=== PATIENT | female | born 1945 | race Caucasian/White ===

== ENCOUNTER 2023-10-12 12:55 | Outpatient (CLI) | payer MEDICARE, SELFPAY ==
[2023-10-12 15:54] LABS: Hemoglobin 13.4 g/dL (12.0-15.0); Mean Corpuscular HGB Conc 31.9 g/dl (32-36); Mean Corpuscular Hemoglobin 28.9 pg (26-34); Mean Corpuscular Volume 90.5 fl (80-100); Mean Platelet Volume 11.7 fl (7.4-10.4); Platelet Count Result 207 k/mm3 (150-375); Red Blood Count 4.64 M/mm3 (4.2-5.4); Red Cell Distribution Width 13.3 % (11.5-14.5)
[2023-10-12 15:57] LABS: Appearance Urine Clear (Clear); Bacteria Urine 1+ /hpf; Bilirubin Urine Negative (Negative); Blood Urine Negative (Negative); Color Urine Yellow (Yellow); Glucose Urine UA 1+ mg/dL (Negative); Ketones Urine Negative (Negative); Leukocyte Esterase Ur Trace LEU/UL (Negative); Nitrate Urine Negative (Negative); Non Pathogenic Casts 0-2; Protein Urine Negative (Negative); RBC Urine 0-2 /hpf (0-2); Specific Grav Ur 1.021 (1.001-1.035); Squamous Epithelial Cell Urine None Seen /hpf (Few); Urobilinogen Urine 0.2 mg/dL (<2.0); pH Urine 5.5 (5.0-9.0)
[2023-10-12 16:15] LABS: Prothrombin Time 13.5 Seconds (11.1-14.7)
[2023-10-12 16:23] LABS: Anion Gap 66 mmol/L (4-12); Blood Urea Nitrogen 13 mg/dL (7-17); Calcium 3.1 mg/dL (8.4-10.2); Carbon Dioxide 6 mmol/L (22-30); Chloride 76 mmol/L (98-107); Estimated Glomerular Filt Rate > 60; Glucose 174 mg/dL (65-110); Potassium 2.6 mmol/L (3.4-5.0); Sodium 148 mmol/L (137-145)
[2023-10-12 17:20] LABS: Add Urine Microscopic? YES
== END 2023-10-12 12:56 | disposition home or self-care (01) ==
PROVIDERS: PCP Family Medicine; Visit Provider Neurological Surgery
DX: Z01.818 Encounter for other preprocedural examination (principal); M48.062 Spinal stenosis, lumbar region with neurogenic claudication
CPT/HCPCS: 36415; 80048; 81001; 85027; 85610; 85730; 86850; 86900; 86901; 87077; 87086; 87088; 87186

== ENCOUNTER 2023-10-18 13:34 | Inpatient (IN) | payer MEDICARE, SELFPAY ==
[2023-10-11 09:42] VITALS: BMI 29.2
--- NOTE | 2023-10-11 10:15 | PC.NURSE ---
PRE-OP INSTRUCTIONS, PLEASE READ CAREFULLY Report to the Outpatient Waiting Room, entrance under the green pavilion located off [facility], at time _0730_ on date _10/17/23_. Planned Procedure Time: _0930_. PACK A SMALL OVERNIGHT BAG AND LEAVE IN THE CAR Time changes happen often and if your time is changed the preop area will call you the afternoon before. - You and your visitor will be asked to self-screen and do not enter if you have any COVID symptoms. - A mask is optional within the hospital at this time. -VISITING HOURS 8AM-8PM Patients may have clear liquids (water, carbonated beverages, clear teas, apple juice) until 3 hours prior to surgery (0630 AM) with a maximum of 20 ounces. - No food from midnight until time of surgery Take the following medications with a SIP of water the morning of surgery: _ISOSORBIDE, METOPROLOL_ DO NOT STOP ANY OF YOUR OTHER PRESCRIPTION MEDICATIONS PRIOR TO SURGERY ?EXCEPT THE FOLLOWING Medications to discontinue - _PT STATES STOPPING ASPIRIN & MELOXICAM 10/08/23_ Medications to discontinue per ANESTHESIA - _PRENATAL VITAMIN AND SUPPLEMENTS 3 DAYS PRIOR TO SURGERY, Date to take last dose 10/13/23_ Please no make-up, nail indonesian, hairspray, perfume, deodorant, or body powder the day of surgery. No jewelry (including any body piercings) or valuables the day of surgery, leave them at home. Please take a shower or bath the night before, or the morning of, surgery with an antibacterial soap. Wear comfortable, loose fitting clothing. - Jewelry must be removed prior to entering the operating room. Rings and piercings that are not removed may be cut off. - The hospital will not accept responsibility for valuables. - Please leave all valuables, including medications, at home the day of surgery. If you are going home after surgery, a licensed rolloff driver must drive you home. - NO public transportation without another adult if you receive anesthesia. - We recommend that an adult stay with you for 24 hours following discharge. - We also recommend that you do not drive, make important decision, drink alcoholic beverages, or take any drugs that were not prescribed by your health care provider for at least 24 hours after your discharge time. Follow any additional instructions given to you from your surgeon. If you or anyone in your household have experienced Covid symptoms in the past week, please notify your surgeon or the nurse liaison at the phone number below for possible testing. Telephone instructions given to _PATIENT_and asked if any additional questions and then verbalized understanding. Patient advised to call surgeon office or pre surgery nurse liaison [phone] if any additional questions.
[2023-10-17] VITALS (17 sets, daily range): BP systolic 97–164; BP diastolic 64–94; PULSE 69–98; RESP 14–20; TEMP 35.9–36.9; O2SAT 96–100
[2023-10-17] MEDS: LACTATED RINGERS 1,000 ML 30 ML IV CONT ×2 (07:00→11:48)
[2023-10-17 07:14] LABS: Glucose Point of Care 134 mg/dl (65-105)
--- NOTE | 2023-10-17 07:30 | WPDANESEPPF ---
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 Patient Data Age: 78 Gender: F Height: 1.65 m Weight: 79.54 kg Allergies Allergy/AdvReac Type Severity Reaction Status Date / Time propoxyphene [From Darvon] AdvReac N/V Verified 10/11/23 09:34 Home Medications Medication Instructions Recorded Confirmed Type aspirin 81 mg tablet,delayed 81 mg PO DAILY 05/19/23 10/11/23 History release (Adult Aspirin Regimen) meloxicam 15 mg tablet 15 mg PO DAILY 05/19/23 10/11/23 History metoprolol tartrate 25 mg tablet 25 mg PO DAILY 05/19/23 10/11/23 History pantoprazole 40 mg tablet,delayed 40 mg PO QAM 05/19/23 10/11/23 History release pramipexole 1 mg tablet See Rx Instructions .Route .COMPLEX 05/19/23 10/11/23 History ascorbic acid (vitamin C) 500 mg 250 mg PO DAILY 10/11/23 10/11/23 History tablet (Vitamin C) calcium 600 mg capsule 600 mg PO DAILY 10/11/23 10/11/23 History cetirizine 10 mg tablet (Zyrtec) 10 mg PO DAILY 10/11/23 10/11/23 History cholecalciferol (vitamin D3) 125 125 mcg PO DAILY 10/11/23 10/11/23 History mcg (5,000 unit) capsule diphenhydramine HCl 50 mg capsule 50 mg PO HS 10/11/23 10/11/23 History (Sleep Aid (diphenhydramine)) docusate sodium 100 mg tablet 200 mg PO DAILY 10/11/23 10/11/23 History (Stool Softener) isosorbide mononitrate 30 mg 30 mg PO QAM 10/11/23 10/11/23 History tablet,extended release 24 hr losartan 100 mg tablet 100 mg PO DAILY 10/11/23 10/11/23 History prenat.vits,asha,qki-ydsv-tmgmr 1 tablet DAILY 10/11/23 10/11/23 History Laboratory Tests 10/17/23 06:55 POC Capillary Glucose 134 H mg/dl (65-105) Patient hx anesthesia problems: none Family hx anesthesia problems: none Results Review: All pre-operative results and documents have been reviewed as part of the pre-operative evaluation. [facility] Family History Family History Father Hypertension Mother Hypertension Social History Social History Smoking status: Never smoker Second hand tobacco smoke exposure: No Alcohol intake: never Substance use: never Substance use type: does not use Do You Feel Safe in your Home?: Yes Lack of Transportation: No Lack of Food: Never True Current Housing: I Have Housing Concerned About Future Housing: No Difficulty Paying Gas/Electric Bills: No Difficulty Paying for Meds: No Currently Unemployed: No Education: High School Diploma/GED Difficulty w/ Childcare or Family Care: No Living arrangements: alone Occupation/Education: retired Gender identity (if verbalized by the patient): Female Sexual Orientation (if Verbalized by the Patient): Straight or Heterosexual Spiritual care concerns: No Anes - Eval Final PreProcedure Day of Procedure 10/17/23 07:30 Patient weight: normal Heart: regular rate and rhythm Lungs: clear to auscultation Airway: Mallampati scale class II Neurological: alert and oriented Last oral intake: >/= 8 hours ASA classification: III Emergent: no Anesthetic plan: proceed Anesthesia type and monitoring: general ETT and standard monitoring Results Review: All pre-operative results and documents have been reviewed as part of the pre-operative evaluation. Informed Consent: The patient's anesthetic plan and its attendant risks and benefits were discussed with the patient/family/POA. Questions were solicited and answers provided to the satisfaction of the patient/family/POA.
--- NOTE | 2023-10-17 07:32 | PM.IMHP ---
H&P: HPI History of Present Illness Date/Time: 10/17/23 07:32 Chief Complaint: Back and leg pain Narrative: Jazmín is a 78-year-old female who in 2012 underwent an L3-5 posterolateral instrumented fusion done by Dr. Velarde at [facility].? While she did well after that surgery she has for the last few years had progressive problems with heavy feeling in her legs and pain in her back especially when she walks.? Sitting down seems to make it go away.? This discomfort and heaviness has become severe enough that she is not able to walk more than about 15-20 minutes before she must sit down.? She can walk farther and be more comfortable if she leans forward on something like a shopping cart.? She has been treated by Dr. Sahu for some time and has undergone injections and finally a dorsal column stimulator placement.? Unfortunately this has not helped her permanently.? She does not report specific muscle group weakness of either lower extremity but does have generalized weakness at the same time that she has the discomfort that is limiting for her.? She does not report new bowel or bladder difficulty.? She does not have specific radiculopathy in either lower extremity.? She has difficulty sleeping in her bed at night and sleeps in a recliner because she can be bent.? She is here to discuss definitive management of her problem. Review of Systems Review of Systems: Const Details: Const All systems reviewed & are unremarkable except as noted in HPI and below ?Denies chills, Denies fever(s), Denies weakness, Denies weight gain and Denies weight loss Eyes Denies change in vision and Denies diplopia ENT Denies neck pain and Denies disequilibrium Card Denies chest pain and Denies dyspnea Resp Denies cough and Denies dyspnea GI Denies abdominal pain, Denies change in bowel habits, Denies fecal incontinence and Denies vomiting Denies hematuria, Denies oliguria, Denies difficulty urinating, Denies dysuria, Denies urinary frequency, Denies urinary hesitancy, Denies urinary incontinence and Denies urinary urgency Musc Reports as per HPI, Reports back pain, Denies muscle weakness, Denies neck pain, Reports numbness and Denies stiffness Skin/ Breast Reports system reviewed and no additional complaints, except as documented Neuro Reports as per HPI, Denies burning sensations, Denies focal weakness, Reports numbness, Denies Other visual disturbances, Reports radicular pain, Reports paresthesias, Denies disequilibrium and Denies weakness Psych Reports no additional complaints, Denies depression and Denies hopelessness Endo Reports no additional complaints and Denies polyuria Matt/ Lymph Reports no additional complaints Aller/ Immun Reports no additional complaints PMFSH Family History Family History Father Hypertension Mother Hypertension Social History Social History Smoking status: Never smoker Second hand tobacco smoke exposure: No Alcohol intake: never Substance use: never Substance use type: does not use Do You Feel Safe in your Home?: Yes Lack of Transportation: No Lack of Food: Never True Current Housing: I Have Housing Concerned About Future Housing: No Difficulty Paying Gas/Electric Bills: No Difficulty Paying for Meds: No Currently Unemployed: No Education: High School Diploma/GED Difficulty w/ Childcare or Family Care: No Living arrangements: alone Occupation/Education: retired Gender identity (if verbalized by the patient): Female Sexual Orientation (if Verbalized by the Patient): Straight or Heterosexual Spiritual care concerns: No Meds Home Medications and Allergies Home Medications Medication Instructions Recorded Confirmed Type aspirin 81 mg tablet,delayed 81 mg PO DAILY 05/19/23 10/11/23 History release (Adult Aspirin Regimen) meloxicam 15 mg tablet 15 mg PO
--- NOTE | 2023-10-17 07:35 | WPDHPUPDATE1 ---
History and Physical Update Update Date/Time: 10/17/23 07:35 History and Physical has been reviewed, including an updated exam of the patient. There are NO changes in the patient's condition. Risks, benefits, and alternatives have been discussed and questions answered. Patient agrees to proceed with procedure.
[2023-10-17] MEDS: ceFAZolin 2 GM/D5W 50 ML 2 GM/50 ML BAG IVPB (07:59)
[2023-10-17] MEDS: LIDO 1%/EPINEPHRINE 1:100,000 50 ML VIAL 16 ML INFILTRATE (08:29)
--- NOTE | 2023-10-17 11:47 | SUR.OPER ---
EBL 700ML
[2023-10-17] MEDS: fentaNYL CITRATE INJ (*CRX) 100 MCG/2 ML VIAL 25 MCG IV PUSH ×8 (12:00→12:54)
[2023-10-17 12:35] LABS: Glucose Point of Care 206 mg/dl (65-105)
[2023-10-17] MEDS: HYDROmorphone HCL INJ (*CRX) 1 MG/ML SYR 0.5 MG IV PUSH ×4 (13:38→20:45)
[2023-10-17] MEDS: ONDANSETRON INJ 4 MG/2 ML VIAL IV PUSH (13:38)
[2023-10-17] MEDS: HYDROcodone/acetaminophen (*CRX) 10-325 MG TABLET 1 TAB PO ×2 (14:43→20:04)
[2023-10-17] MEDS: CYCLOBENZAPRINE HCL 10 MG TABLET PO ×2 (14:45→22:40)
[2023-10-17] MEDS: PRAMIPEXOLE 1 MG TABLET PO ×2 (18:32→20:04)
[2023-10-17] MEDS: diphenhydrAMINE HCl CAP 25 MG CAPSULE 50 MG PO (20:04)
[2023-10-17] MEDS: DOCUSATE SODIUM 100 MG CAPSULE PO (20:04)
[2023-10-17 21:38] LABS: Hepatitis B Surface Antigen Negative (Negative)
[2023-10-17 21:55] LABS: HIV 1/2 Ab P24 Ag Result Negative (Negative); Hepatitis C Virus Antibody Negative (Negative)
--- NOTE | ~2023-10-18 | XR_ITS ---
XR fluoroscopy no charge Indication: L1-2, L2-3 posterior lumbar instrumentated fusion TECHNIQUE: Fluoroscopy used during L1-2, L2-3 posterior lumbar instrumented fusion performed by [Tacos Brush MD] on 10/17/2023. 7 seconds of fluoroscopy with 6 fluoroscopic images captured. FINDINGS: Correlate with procedure note. IMPRESSION: Fluoroscopy used during L1-2, L2-3 posterior lumbar instrumented fusion. Reviewed, dictated and finalized at location B. IMPRESSION: Fluoroscopy used during L1-2, L2-3 posterior lumbar instrumented fu lorraine.
[2023-10-18] MEDS: HYDROcodone/acetaminophen (*CRX) 10-325 MG TABLET 1 TAB PO ×5 (01:00→20:01)
[2023-10-18] MEDS: ONDANSETRON INJ 4 MG/2 ML VIAL IV PUSH (02:32)
[2023-10-18 04:02] VITALS: BP 133/65; PULSE 99; RESP 16; TEMP 36.7; O2SAT 95
[2023-10-18] MEDS: CYCLOBENZAPRINE HCL 10 MG TABLET PO ×3 (05:58→23:13)
[2023-10-18 08:02] VITALS: BP 136/71; PULSE 103; RESP 16; TEMP 36.8; O2SAT 97
[2023-10-18] MEDS: ISOSORBIDE MONONITRATE 30 MG TAB.ER.24H PO (09:00)
[2023-10-18] MEDS: LOSARTAN POTASSIUM 100 MG TABLET PO (09:00)
[2023-10-18] MEDS: CHOLECALCIFEROL 1,000 UNITS TABLET 5000 UNITS PO (09:00)
[2023-10-18 09:01] VITALS: PULSE 98
[2023-10-18] MEDS: DOCUSATE SODIUM 100 MG CAPSULE PO ×2 (09:01→20:01)
[2023-10-18] MEDS: PANTOPRAZOLE 40 MG TABLET PO (09:01)
[2023-10-18] MEDS: MULTIVIT/MIN/PREN/FOL AC/IRON TABLET 1 TAB PO (09:01)
[2023-10-18] MEDS: LORATADINE 10 MG TABLET PO (09:01)
[2023-10-18] MEDS: METOPROLOL SUCCINATE EXT REL 25 MG TABCR PO (09:01)
[2023-10-18] MEDS: CALCIUM CARBONATE (OSCAL) 500 MG TABLET PO (09:01)
[2023-10-18] MEDS: ASCORBIC ACID 250 MG TABLET PO (09:01)
--- NOTE | 2023-10-18 09:18 | WPDANESPN ---
Anes - Prog Note Post-Op Date/Time: 10/18/23 09:18 Cardiovascular status: normal Respiratory status: normal Airway patency: baseline Mental status: baseline Post-Op hydration status: normal Vital Signs: Last Vital Signs Temp 36.8 C 10/18/23 08:02 Pulse 98 10/18/23 09:01 Resp 16 10/18/23 08:02 BP 136/71 10/18/23 08:02 Pulse Ox 97 10/18/23 08:02 O2 Del Method Room Air 10/17/23 20:00 O2 Flow Rate 6 10/17/23 12:15 Pain Score (VAS): 0 I/O: Intake & Output 10/17/23 10/18/23 10/18/23 23:59 07:59 15:59 Intake Total 300 Output Total 500 Balance -200 10/17/23 10/17/23 10/17/23 12:32 20:16 20:16 POC Capillary Glucose 206 H Hep Bs Antigen Negative Hep Bs Antibody Cancelled Hepatitis C Ab Screen Cancelled Negative HIV 1&2 Ab/P24 Ag 4thGn Cancelled 10/17/23 20:16 POC Capillary Glucose Hep Bs Antigen Hep Bs Antibody Hepatitis C Ab Screen HIV 1&2 Ab/P24 Ag 4thGn Negative Post-procedural complaints: none Patient Feedback: Patient satisfied with anesthetic care.
--- NOTE | 2023-10-18 10:13 | WPDNEUROSGPN ---
Progress Note: A&P Assessment and Plan (1) Status post lumbar spinal arthrodesis: Code(s): Z98.1 - Arthrodesis status Status: Acute Plan Plan: -DC dan catheter this morning -Continue hemovac today -Mobilize with PT/OT -IS encouraged -Pain control -May consider adding steroids if leg pain is persistent Subjective Date/time seen: 10/18/23 10:13 Interval history: She is having a fair amount of pain in the back in particular which is being alleviated with current medications. She has a similar amount of leg pain, worse on the right, as before surgery. She just got up to a chair with therapy. She has been having some nausea. Review of Systems Review of Systems: All systems reviewed & are unremarkable except as noted in HPI and below Exam Narrative: AOx4 Incision c/d/i Moving legs with equal strength, somewhat pain limited Sensation intact to light touch HV 290cc out since surgery Objective Data Vital Signs Vital Signs: Vital Signs - 24 hr 10/17/23 11:48 10/17/23 12:00 10/17/23 12:15 Temperature 98.0 F Pulse Rate 73 71 78 Respiratory Rate 14 16 16 Blood Pressure 97/64 L 111/72 141/78 H Pulse Oximetry 100 99 100 Oxygen Delivery Simple Face Mask Simple Face Mask Simple Face Mask Oxygen Flow Rate 6 6 6 10/17/23 12:20 10/17/23 12:35 10/17/23 12:50 Temperature 97.5 F L Pulse Rate 75 77 77 Respiratory Rate 16 16 16 Blood Pressure 140/82 136/89 158/94 H Pulse Oximetry 100 98 98 Oxygen Delivery Room Air Room Air Room Air Oxygen Flow Rate 10/17/23 13:00 10/17/23 15:39 10/17/23 13:02 Temperature 96.7 F L Pulse Rate 77 71 Respiratory Rate 16 18 Blood Pressure 154/78 H 164/82 H Pulse Oximetry 100 100 Oxygen Delivery Room Air Room Air Oxygen Flow Rate 10/17/23 13:17 10/17/23 13:32 10/17/23 13:47 Temperature 96.6 F L 96.9 F L 96.9 F L Pulse Rate 70 78 80 Respiratory Rate 20 20 20 Blood Pressure 164/82 H 149/78 H 140/70 Pulse Oximetry 100 97 97 Oxygen Delivery Oxygen Flow Rate 10/17/23 14:02 10/17/23 14:32 10/17/23 15:02 Temperature 96.9 F L 96.8 F L 97.1 F L Pulse Rate 77 78 77 Respiratory Rate 18 18 18 Blood Pressure 104/92 H 142/88 H 144/90 H Pulse Oximetry 96 96 96 Oxygen Delivery Oxygen Flow Rate 10/17/23 18:43 10/17/23 20:00 10/17/23 20:02 Temperature 98.3 F Pulse Rate 85 Respiratory Rate 16 Blood Pressure 141/68 H Pulse Oximetry 98 Oxygen Delivery Room Air Room Air Oxygen Flow Rate 10/17/23 23:43 10/18/23 04:02 10/18/23 08:02 Temperature 98.4 F 98.1 F 98.2 F Pulse Rate 98 99 103 H Respiratory Rate 20 16 16 Blood Pressure 120/67 133/65 136/71 Pulse Oximetry 97 95 97 Oxygen Delivery Oxygen Flow Rate 10/18/23 09:01 10/18/23 08:00 Temperature Pulse Rate 98 Respiratory Rate Blood Pressure Pulse Oximetry Oxygen Delivery Room Air Oxygen Flow Rate Intake/Output Intake/Output: Intake & Output 10/15/23 10/16/23 10/17/23 10/18/23 23:59 23:59 23:59 23:59 Intake Total 600 300 Output Total 1070 500 Balance -470 -200 Meds/Results Medications: Active Medications Generic Name Dose Route Start Last Admin Trade Name Freq PRN Reason Stop Dose Admin Hydrocodone Bitart/Acetaminophen 1 tab 10/17/23 13:02 Hydrocodone/Acetaminophen (*Crx) 5-325 Mg Tablet PO Q4H PRN Mild Pain (1-3) Hydrocodone Bitart/Acetaminophen 1 tab 10/17/23 13:02 10/18/23 05:58 Hydrocodone/Acetaminophen (*Crx) 10-325 Mg Tablet PO 1 tab Q4H PRN Administration Moderate Pain (4-6) Al Hydrox/Mg Hydrox/Simethicone 20 ml 10/17/23 13:02 Mag Hydrox/Al Hydrox/Simeth 30 Ml Udc PO Q4H PRN Indigestion/Heartburn Ascorbic Acid 250 mg 10/18/23 09:00 10/18/23 09:01 Ascorbic Acid 250 Mg Tablet PO 250 mg DAILY TROY Administration Bisacodyl 10 mg 10/17/23 13:02 Bisacodyl 10 Mg Suppository RECTAL DAILY PRN Constipation Calcium Carbonate 50
[2023-10-18 12:02] VITALS: BP 112/63; PULSE 96; RESP 16; TEMP 37; O2SAT 99
[2023-10-18 16:02] VITALS: BP 118/57; PULSE 90; RESP 18; TEMP 37.1; O2SAT 96
[2023-10-18] MEDS: PRAMIPEXOLE 1 MG TABLET PO ×2 (17:17→20:01)
[2023-10-18] MEDS: diphenhydrAMINE HCl CAP 25 MG CAPSULE 50 MG PO (20:01)
[2023-10-18 21:14] VITALS: BP 113/61; PULSE 86; RESP 13; TEMP 36.7; O2SAT 98
[2023-10-18] MEDS: HYDROmorphone HCL INJ (*CRX) 1 MG/ML SYR 0.5 MG IV PUSH (22:28)
[2023-10-19] MEDS: HYDROcodone/acetaminophen (*CRX) 10-325 MG TABLET 1 TAB PO ×3 (04:25→13:50)
[2023-10-19 05:51] VITALS: BP 106/51; PULSE 78; RESP 12; TEMP 36.7; O2SAT 93
[2023-10-19] MEDS: CHOLECALCIFEROL 1,000 UNITS TABLET 5000 UNITS PO (09:16)
[2023-10-19 09:17] VITALS: PULSE 78
[2023-10-19] MEDS: MULTIVIT/MIN/PREN/FOL AC/IRON TABLET 1 TAB PO (09:17)
[2023-10-19] MEDS: LOSARTAN POTASSIUM 100 MG TABLET PO (09:17)
[2023-10-19] MEDS: LORATADINE 10 MG TABLET PO (09:17)
[2023-10-19] MEDS: DOCUSATE SODIUM 100 MG CAPSULE PO (09:17)
[2023-10-19] MEDS: CALCIUM CARBONATE (OSCAL) 500 MG TABLET PO (09:17)
[2023-10-19] MEDS: ISOSORBIDE MONONITRATE 30 MG TAB.ER.24H PO (09:17)
[2023-10-19] MEDS: ASCORBIC ACID 250 MG TABLET PO (09:17)
[2023-10-19] MEDS: METOPROLOL SUCCINATE EXT REL 25 MG TABCR PO (09:17)
[2023-10-19] MEDS: PANTOPRAZOLE 40 MG TABLET PO (09:17)
[2023-10-19 14:00] VITALS: BP 122/74; PULSE 93; RESP 16; TEMP 37; O2SAT 97
--- NOTE | 2023-10-19 17:48 | PM.DS ---
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 She was transferred to the floor after surgery. Payne catheter was removed on POD1. She started working with therapy on the day of surgery who ultimately cleared her for discharge home. Her hemovac output decreased significantly by POD2. She was mobilizing in the halls; her pain was controlled with oral medication, and she was tolerating oral intake. She did complain of worsened right leg pain for which I am discharging her on a Medrol dosepak. She otherwise wishes to go home. Time Spent with Patient Time attestation: Total time spent providing and/or coordinating discharge services: Exam Narrative: AOx4 Incisions c/d/i with dermabond in place Moving legs with much better strength, slight pain-limited weakness in right hip flexor Sensation intact to light touch Discharge Plan Discharge Attending physician on discharge: Agnieszka Gaviria Discharging Clinician: Agnieszka Gaviria Patient Disposition: Home Health Service Activity: other - see discharge instructions Diet: as tolerated Discharge Instructions: Per Care Coordination. Patient to have [facility] for RN/PT/OT eval and treat P: [phone]. RN please fax discharge instructions to: F: [phone] Patient Instructions: Antibiotic Form Stand Alone Forms: General Discharge Information Follow-up/Referrals: Tacos Brush MD [Physician] - Discharge Medications: New oxycodone 5 mg tablet 5 mg PO Q4H PRN (Reason: pain) Qty: 42 0RF sennosides-docusate sodium [Senokot-S] 8.6-50 mg Tablet 1 tab-cap PO BID 10 Days Qty: 20 0RF cyclobenzaprine 10 mg Tablet 10 mg PO TID PRN (Reason: Muscle Spasms) Qty: 30 0RF methylprednisolone [Medrol (Gustavo)] 4 mg tablets,dose pack See Rx Instructions .ROUTE .COMPLEX Qty: 21 0RF Rx Instructions: for 6 days Continued metoprolol tartrate 25 mg tablet 25 mg PO DAILY Rx Instructions: QAM pantoprazole 40 mg tablet,delayed release (DR/EC) 40 mg PO QAM pramipexole 1 mg tablet See Rx Instructions .ROUTE .COMPLEX Rx Instructions: TAKE ONE AT SUPPER TIME AND ONE AT BEDTIME calcium 600 mg Capsule 600 mg PO DAILY diphenhydramine HCl [Sleep Aid (diphenhydramine)] 50 mg Capsule 50 mg PO HS cetirizine [Zyrtec] 10 mg Tablet 10 mg PO DAILY isosorbide mononitrate 30 mg tablet extended release 24 hr 30 mg PO QAM ascorbic acid (vitamin C) [Vitamin C] 500 mg Tablet 250 mg PO DAILY losartan 100 mg Tablet 100 mg PO DAILY cholecalciferol (vitamin D3) 125 mcg (5,000 unit) Capsule 125 mcg PO DAILY docusate sodium [Stool Softener] 100 mg Tablet 200 mg PO DAILY Vitamin Tablet 1 tablet DAILY Held meloxicam 15 mg tablet 15 mg PO DAILY aspirin [Adult Aspirin Regimen] 81 mg tablet,delayed release (DR/EC) 81 mg PO DAILY Date of admission: 10/18/23 13:34 Primary Care Provider: SoheilaJulius Admitting Provider: Tacos Brush Attending physician on admission: Tacos Brush Condition: Stable
[2023-10-19] MEDS: HYDROcodone/acetaminophen (*CRX) 5-325 MG TABLET 1 TAB PO (18:11)
[2023-10-19] MEDS: CYCLOBENZAPRINE HCL 10 MG TABLET PO (18:11)
[2023-10-19] MEDS: PRAMIPEXOLE 1 MG TABLET PO (18:20)
--- NOTE | 2023-11-16 17:15 | W.PM.PROC2 ---
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 , chronic back and leg pain Post-op Diagnosis Same Procedure Performed L1-2, L2-3 complete laminectomy and bilateral facetectomy, L1-2 and L2-3 complete diskectomy and interbody arthrodesis utilizing titanium interbody devices and local autograft, removal of posterior instrumentation L3-4 and L4-5, pedicle screw instrumentation L1-5, removal of dorsal column stimulator lead and generator Surgeon Tacos Brush MD Anesthesia General Description of Procedure the patient was brought to the operating room in the supine position, was sedated, intubated and placed under general anesthesia in routine fashion. She was then turned into the prone position on Alejo frame. The operation her back was examined, marked for incision, prepped and draped in routine sterile fashion. Incision was marked over the L1 through 5 spinous processes in the midline. This area was injected with 0.5% lidocaine with 1 200,000 epinephrine. Intravenous antibiotics given prior to incision. Incision was made with a 10 blade scalpel down to the lumbodorsal fascia. A subperiosteal dissection of the muscle and soft tissue away from spinous process lamina at L1-2 and L2-3 was performed with a subperiosteal elevator and Bovie cautery. A verifying x-rays obtained to verify level of operation. The right flank incision was also opened and Bovie cautery used to discover the generator. This was removed from the pocket. The wires were cut. At the midline incision the wires were discovered and the anchors were freed from the fascia. The wires were then pulled free from the epidural space. Thusly the entire dorsal column stimulator was removed and passed off the field. A subperiosteal dissection of the muscle and soft tissue away from the spinous process and lamina at L1-2 3 was performed with a subperiosteal elevator and Bovie cautery. A verifying x-rays obtained to verify the level of operation. The L1 and L2 spinous processes were removed with a Clarissa rongeur. Kerrison punches, curved curettes and a Leksell rongeur were used to remove lamina in the midline until the soft contents of the canal were encountered. A Midas Pravin drill was used to resect the pars bilaterally at L1 and L2. The inferior articular process and facet of L1 and L2 could then be removed bilaterally. These +spinous processes were stripped free of soft tissue and morselized for later use as interbody autograft. Kerrison punches and curved curettes were used to define a plane with the dura and remove bone and ligament flush with the pedicle and through the foramina widely decompressing the exiting nerve roots. With the thecal sac retracted and protected the disc space was entered bilaterally using an 11 blade scalpel. Scrapers of various sizes, curettes of various configurations, pituitary rongeur and a rasp were used to remove as much cartilaginous endplate and disc material as possible down to bleeding cortical flat surfaces on the opposing bones. The disc spaces were then sized an appropriately sized interbody devices were chosen and filled with local autograft bone. The disc space was likewise filled with local autograft bone. The interbody devices were then placed to a 2-3 mm countersink within the disc space bilaterally. Pedicle screw instrumentation was performed at L1 and L2 by observing and palpating the pedicle while a hole was made in the superior articular process above the pedicle using a Midas Pravin drill. Pedicle was then cannulated with a pedicle probe, checked for continuity with the ball probe, tapped with a 5.5 mm tap and a 6.5 x 50 mm screw was placed into each pedicle on each side. The caps and rods were removed using the appropriate drivers at L3-5. The screws were then also removed. These were replaced with Orthofix screws of a slightly higher diameter in each pedicle. Rods were then p
== END 2023-10-19 18:20 | disposition home health service (06) | DRG 460 ==
LOC: ANHSURGERY 13:51 → ANH3MEDSUR 13:51
PROVIDERS: Admitting Provider Neurological Surgery; PCP Family Medicine; Visit Provider Neurological Surgery
PROC: 0SB20ZZ Excision of Lumbar Vertebral Disc, Open Approach (ICD-10-PCS; CPT 22612; principal; 2023-10-17 07:30)
PROC: 0SB20ZZ Excision of Lumbar Vertebral Disc, Open Approach (ICD-10-PCS; 2023-10-17 07:30)
DX: M48.062 Spinal stenosis, lumbar region with neurogenic claudication (principal); G89.29 Other chronic pain; Z98.1 Arthrodesis status; Z96.82 Presence of neurostimulator; Z79.82 Long term (current) use of aspirin
CPT/HCPCS: 36415; 82948; 86703; 86803; 87340; 97110; 97116; 97161; 97166; 97530; 97535; 99199; A9270; C1713; G0432; J0690; J1100; J1170; J2405; J2704; J3010; J7120